=== PATIENT | female | born 1960 | race Caucasian/White ===

== ENCOUNTER 2019-06-07 09:59 | Emergency (ER) | payer MEDICARE ==
--- OUTSIDE RECORDS SUMMARY | 2019-06-07 10:19 | XMS REPORT | Continuity of Care Document ---
:1960 External Reference #:[id number] Author Name Juan Sheppard DO, MPH Address [address] [place] [address], [address] [place] [address] Care Team Providers Name Role Phone Lucina Kelley M.D. - Family Care Team Information System Configuration Specialist [phone] Medicine Po Ramos DMP - Color Drum Worker Care Team Information System Configuration Specialist [phone] Problems Description No Information Available Social History Type Date Description Comments Sex Unknown ETOH Use Denies alcohol use Tobacco Use Start: Unknown Patient is a current smoker, smokes every day Recreational Drug Use Denies Drug Use Smoking Status Reviewed: 04/19/19 Patient is a current smoker, smokes every day Allergies, Adverse Reactions, Alerts Active Allergies Reaction Severity Comments Date Droperidol 03/20/2019 Varenicline Tartrate 03/20/2019 Sulfa Antibiotics 03/20/2019 Medications Active Medications SIG Qnty Indications Ordering Date Provider Tizanidine HCL si/2-1 by 60tabs Juan Sheppard, 04/04/2019 4mg mouth every 12 day TIFFANIE CAN Tablets as directed Ibuprofen si by mouth Unknown 600mg Tablets three times a day Omeprazole 1 by mouth every Unknown 40mg day Capsules DR Levothyroxine Sodium 1 by mouth daily Unknown 75mcg Tablets Bupropion 1 by mouth daily Unknown Hydrochloride ER (XL) 300mg Tablets ER 24HR Oxycodone-Acetaminoph si by mouth Unknown en every 4-6 hours 5-325mg Tablets chronic pain patient Trazodone HCL si-2 by mouth Unknown 100mg every night at Tablets bedtime as directed Diclofenac Sodium apply four grams Unknown 1% to left elbow four Gel times a day Hydrocodone-Acetamino take 1 tablet by Unknown phen mouth every 8 to 5-325mg Tablets 12 hours as directed chronic pain. Prednisone si by mouth Unknown 10mg Tablets day 1; 7 by mouth day 2; decreasing 1 tablet each day as directed Immunizations Description No Information Available Vital Signs Date Vital Result Comment 04/19/2019 2:21pm BP Systolic 136 mmHg BP Diastolic 82 mmHg Heart Rate 88 /min Respiratory Rate 20 /min Height 64 inches 5'4" Weight 142.00 lb Pain Level 9 Pain at this time. Pain Level With Medicine 9 on average with meds Pain Level Without Medicine 9 without meds BMI (Body Mass Index) 24.4 kg/m2 04/04/2019 2:30pm BP Systolic 122 mmHg BP Diastolic 72 mmHg Heart Rate 74 /min Respiratory Rate 20 /min Height 64 inches 5'4" Weight 144.00 lb Pain Level 9 Pain at this time. Pain Level With Medicine 9 on average with meds Pain Level Without Medicine 9 without meds BMI (Body Mass Index) 24.7 kg/m2 Results Description No Information Available Procedures Date Code Description Status 03/20/2019 05204 Brief Emotional/Behav Assessment W/ Scoring Doc Per Completed Standard Inst Medical Devices Description No Information Available Encounters Type Date Location Provider Dx Diagnosis Office Visit 04/04/2019 Main Office as Of Juan Sheppard DO G89.29 Other chronic pain 2:30p 10/07/13 MPH M54.5 Low back pain M79.671 Pain in right foot M79.672 Pain in left foot M20.41 Other hammer toe(s) (acquired), right foot M20.42 Other hammer toe(s) (acquired), left foot M21.6x1 Other acquired deformities of right foot M21.6x2 Other acquired deformities of left foot Z79.891 tank terminal gauger (current) use of opiate analgesic Office Visit 03/20/2019 1:45p Main Office as Juan Sheppard G89.29 Other chronic Of 10/07/13 DO, MPH pain M54.5 Low back pain M79.671 Pain in right foot M79.672 Pain in left foot M20.41 Other hammer toe(s) (acquired), right foot M20.42 Other hammer toe(s) (acquired), left foot M21.6x1 Other acquired deformities of right foot M21.6x2 Other acquired deformities of left foot I73.9 Peripheral vascular disease, unspecified E03.9 Hypothyroidism, unspecified Z13.31 Encounter for screening for depression Z79.891 tank terminal gauger (current) use of opiate analgesic F41.9 Anxiety disorder, unspecified K21.9 Gastro-esophageal reflux disease without esophagitis F43.12 Post-traumatic stress disorder, chronic F17.210 Nicotine dependence, cigarettes, uncomplicated E03.8 Other specified hypothyroidism G47.8 Other sleep disorders Z71.89 Other specified counseling Z71.3 Dietary counseling and surveillance Assessments Date Code Description Provider 04/19/2019 G89.29 Other chronic pain Sheppard, Juan, DO, MPH 04/19/2019 M54.2 Cervicalgia Sheppard, Juan, DO, MPH 04/19/2019 M54.5 Low back pain Sheppard, Juan, DO, MPH 04/19/2019 M79.671 Pain in right foot Sheppard, Juan, DO, MPH 04/19/2019 M79.672 Pain in left foot Sheppard, Juan, DO, MPH 04/19/2019 M20.41 Other hammer toe(s) (acquired), right foot Sheppard, Juan, DO, MPH 04/19/2019 M20.42 Other hammer toe(s) (acquired), left foot Sheppard, Juan, DO , MPH 04/19/2019 M21.6x1 Other acquired deformities of right foot Sheppard, Juan, DO , MPH 04/19/2019 M21.6x2 Other acquired deformities of left foot Sheppard, Juan, DO , MPH 04/19/2019 Z79.891 tank terminal gauger (current) use of opiate analgesic Sheppard, Juan , DO, MPH 04/04/2019 G89.29 Other chronic pain Sheppard, Juan, DO, MPH 04/04/2019 M54.5 Low back pain Sheppard, Juan, DO, MPH 04/04/2019 M79.671 Pain in right foot Sheppard, Juan, DO, MPH 04/04/2019 M79.672 Pain in left foot Sheppard, Juan, DO, MPH 04/04/2019 M20.41 Other hammer toe(s) (acquired), right foot Sheppard, Juan, DO, MPH 04/04/2019 M20.42 Other hammer toe(s) (acquired), left foot Sheppard, Juan, DO , MPH 04/04/2019 M21.6x1 Other acquired deformities of right foot Sheppard, Juan, DO , MPH 04/04/2019 M21.6x2 Other acquired deformities of left foot Sheppard, Juan, DO , MPH 04/04/2019 Z79.891 assisted (current) use of opiate analgesic Sheppard, Juan , DO, MPH 03/20/2019 G89.29 Other chronic pain Sheppard, Juan, DO, MPH 03/20/2019 M54.5 Low back pain Sheppard, Juan, DO, MPH 03/20/2019 M79.671 Pain in right foot Sheppard, Juan, DO, MPH 03/20/2019 M79.672 Pain in left foot Sheppard, Juan, DO, MPH 03/20/2019 M20.41 Other hammer toe(s) (acquired), right foot Sheppard, Juan, DO, MPH 03/20/2019 M20.42 Other hammer toe(s) (acquired), left foot Sheppard, Juan, DO , MPH 03/20/2019 M21.6x1 Other acquired deformities of right foot Sheppard, Juan, DO , MPH 03/20/2019 M21.6x2 Other acquired deformities of left foot Sheppard, Juan, DO , MPH 03/20/2019 I73.9 Peripheral vascular disease, unspecified Sheppard, Juan, DO, MPH 03/20/2019 E03.9 Hypothyroidism, unspecified Sheppard, Juan, DO, MPH 03/20/2019 Z13.31 Encounter for screening for depression Sheppard, Juan, DO, MPH 03/20/2019 Z79.891 assisted (current) use of opiate analgesic Sheppard, Juan , DO, MPH 03/20/2019 F41.9 Anxiety disorder, unspecified Sheppard, Juan, DO, MPH 03/20/2019 K21.9 Gastro-esophageal reflux disease without Juan Sheppard DO MPH esophagitis 03/20/2019 F43.12 Post-traumatic stress disorder, chronic Juan Sheppard DO MPH 03/20/2019 F17.210 Nicotine dependence, cigarettes, Juan Sheppard DO MPH uncomplicated 03/20/2019 E03.8 Other specified hypothyroidism Juan Sheppard DO, MPH 03/20/2019 G47.8 Other sleep disorders Juan Sheppard DO, MPH 03/20/2019 Z71.89 Other specified counseling Juan Sheppard DO, MPH 03/20/2019 Z71.3 Dietary counseling and surveillance Juan Sheppard DO MPH Plan of Treatment Future Appointment(s):05/30/2019 11:00 am - Juan Sheppard DO, MPH at Main Office as Of 10/07/1407 - Juan Sheppard DO, MPHG89.29 Other chronic painNew Orders:T.E.N.S. Unit, Ordered: 04/19/19Comments:Chronic. Symptoms and complaints discussed and reviewed today. No significant changes in physical findings. Continue current medical pain management.M54.2 CervicalgiaComments: Chronic. Symptoms and complaints discussed and reviewed today. Significant changes in physical findings. Continue current medical pain management. Cervical Xray report from [facility] 04/15/2019 Findings: No fracture or dislocation. There is moderate loss of disc height at C3-4 and C4-5 and there is anterolisthesis of C5 on C8, there is diffuse facet arthrosis. There is severe left foraminal stenosis at C5-6 and C6-7 and there is severe right foraminal stenosis at C6-7.IMPRESSION: Multilevel foraminal stenosis.Will ask for assistance for referral for Dr. Billingsley for evaluation of her Neck pain.Referral:Nicole Forde MD, Surgery,LqujztiedtfqD16.5 Low back painNew Orders:T.E.N.S. Unit, Ordered: 04/19/19Comments:Chronic. Symptoms and complaints discussed and reviewed today.No changes in physical findings. Patient is stable and comfortable when current medical therapy is rendered.M79.671 Pain in right footComments:Chronic. Symptoms and complaints discussed and reviewed today. No significant changes in physical findings. Continue current medical pain management.M79.672 Pain in left footComments: Chronic. Symptoms and complaints discussed and reviewed today. No significant changes in physical findings. Continue current medical pain management.M20.41 Other hammer toe(s) (acquired), right footComments:Chronic. Symptoms and complaints discussed and reviewed today. Significant changes in physical findings. Continue current medical pain management.M20.42 Other hammer toe(s) ( acquired), left footComments:Chronic. Symptoms and complaints discussed and reviewed today. Significant changes in physical findings. Continue current medical pain management.M21.6x1 Other acquired deformities of right footComments :Chronic. Symptoms and complaints discussed and reviewed today. Significant changes in physical findings. Continue current medical pain management.M21.6x2 Other acquired deformities of left footComments:Chronic. Symptoms and complaints discussed and reviewed today. Significant changes in physical findings. Continue current medical pain management.Z79.891 assisted (current) use of opiate analgesicNew Labs:Urine Drug Screen, Ordered: 04/19/19Comments: Urine drug screen sample taken today to monitor opiate use and to monitor use of illicit substances.Will discuss results at next appointment.The following tests were ordered:6 AM, AMPH, LUIS, SAIGE, BUP, CARIS, COCM, COT, ETG, FENT, MCSHSG, OPI, OXY, PCP, TAPEN, XTSY, ZOLP. A urine drug test (UDT) was ordered for this patient and collected on site today. Creatinine has been ordered as well for specimen validity, not for kidney function. Preliminary UDT results are not final and should not be used to determine patient care or plan of treatment. Initially a qualitative immunoassay screen will be done. Any inconsistent or positive findings will be further tested with a more comprehensive quantitative confirmation LCMS study. It is part of the treatment process of prescribing controlled substances and is considered standard of care.AllComments:Continue current medical pain management; injection therapy, osteopathic manipulation, PT / modalities, and consults as needed to manage chronic pain.Non - opioid pain management discussed and optionsdiscussed.Side effects discussed; anticipatory guidance given. Patient clearly understand and agree with all medical treatments and suggestions. All medicines prescribed are adequate and appropriate for this patient's complaint of pain, medical history, physical, and personal goals.Goals of Treatment are to provide adequate and appropriate multidisciplinary medical pain management to increase/ maintain patient's quality of life and functionality while maintaining satisfactory side effect profile andminimizing mcfp end-organ damage. Importance of regular nutrition throughout the day discussed.Activity as toleratedContinue with PCP Functional Status Description No Information Available Mental Status Description No Information Available Referrals Refer to Dr Reason for Referral Status Appt Date Nicole Forde MD Please evaluate and treat neck pain. Created [address] [place] [address] [phone]
--- OUTSIDE RECORDS SUMMARY | 2019-06-07 10:19 | XMS REPORT | Continuity of Care Document ---
:1960 External Reference #:[id number] Author Name Juan Sheppard DO MPH Address [address] [place] [address], [address] [place] [address] Care Team Providers Name Role Phone Lucina Kelley M.D. - Family Care Team Information Distribution Lineman [phone] Medicine Po Ramos DMP - Associate Director Career Services Care Team Information Distribution Lineman [phone] Problems Description No Information Available Social History Type Date Description Comments Sex Unknown ETOH Use Denies alcohol use Tobacco Use Start: Unknown Patient is a current smoker, smokes every day Recreational Drug Use Denies Drug Use Smoking Status Reviewed: 04/04/19 Patient is a current smoker, smokes every day Allergies, Adverse Reactions, Alerts Active Allergies Reaction Severity Comments Date Droperidol 03/20/2019 Varenicline Tartrate 03/20/2019 Sulfa Antibiotics 03/20/2019 Medications Active Medications SIG Qnty Indications Ordering Date Provider Tizanidine HCL si/2-1 by 60tabs Juan Sheppard, 04/04/2019 4mg mouth every 12 DO, MPH Tablets day as directed Ibuprofen si by mouth Unknown 600mg Tablets three times a day Omeprazole 1 by mouth every Unknown 40mg Capsules day DR Levothyroxine Sodium 1 by mouth daily Unknown 75mcg Tablets Bupropion 1 by mouth daily Unknown Hydrochloride ER (XL) 300mg Tablets ER 24HR Oxycodone-Acetaminophe si by mouth Unknown n every 4-6 hours 5-325mg Tablets chronic pain patient Trazodone HCL si-2 by mouth Unknown 100mg every night at Tablets bedtime as directed Diclofenac Sodium apply four grams Unknown 1% Gel to left elbow four times a day Immunizations Description No Information Available Vital Signs Date Vital Result Comment 04/04/2019 2:30pm BP Systolic 122 mmHg BP Diastolic 72 mmHg Heart Rate 74 /min Respiratory Rate 20 /min Height 64 inches 5'4" Weight 144.00 lb Pain Level 9 Pain at this time. Pain Level With Medicine 9 on average with meds Pain Level Without Medicine 9 without meds BMI (Body Mass Index) 24.7 kg/m2 03/20/2019 2:14pm BP Systolic 130 mmHg BP Diastolic 78 mmHg Heart Rate 74 /min Respiratory Rate 18 /min Height 64 inches 5'4" Weight 144.00 lb Pain Level 8 Pain at this time. Pain Level Without Medicine 9 without meds BMI (Body Mass Index) 24.7 kg/m2 Results Description No Information Available Procedures Description No Information Available Medical Devices Description No Information Available Encounters Description No Information Available Assessments Date Code Description Provider 04/04/2019 G89.29 Other chronic pain Sheppard, Juan, [...] Sheppard, Juan, DO , MPH 04/04/2019 Z79.891 custodial (current) use of opiate analgesic Sheppard, Juan [...] depression Sheppard, Juan, DO, MPH 03/20/2019 Z79.891 custodial (current) use of opiate analgesic Sheppard, Juan , DO, MPH 03/20/2019 F41.9 Anxiety disorder, unspecified Sheppard, Juan, DO, MPH 03/20/2019 K21.9 Gastro-esophageal reflux disease without Sheppard, Juan, DO, MPH esophagitis 03/20/2019 F43.12 Post-traumatic stress disorder, chronic Sheppard, Juan, DO, MPH 03/20/2019 F17.210 Nicotine dependence, cigarettes, Sheppard, Juan, DO, MPH uncomplicated 03/20/2019 E03.8 Other specified hypothyroidism Sheppard, Juan, DO, MPH 03/20/2019 G47.8 Other sleep disorders Sheppard, Juan, DO, MPH 03/20/2019 Z71.89 Other specified counseling Sheppard, Juan, DO, MPH 03/20/2019 Z71.3 Dietary counseling and surveillance SheppardCassi robertph, DO, MPH Plan of Treatment Future Appointment(s):05/04/2019 3:00 pm - Juan Sheppard DO, MPH at Main Office as Of 10/07/1406 - Sheppard, Juan, DO, MPHG89.29 Other chronic painComments:Chronic. Symptoms and complaints discussed and reviewed today. No significant changes in physical findings. Continue current medical pain management.M54.5 Low back painComments:Chronic. Symptoms and complaints discussed and reviewed today.No changes in physical findings. Patient is stable and comfortable when current medical therapy is rendered.M79.671 Pain in right footComments:Chronic. Symptoms and complaints discussed and reviewed today. No significant changes in physical findings. Continue current medical pain management.M79.672 Pain in left footComments:Chronic. Symptoms and complaints discussed and reviewed today. No significant changes in physical findings. Continue current medical pain management.M20.41 Other hammer toe(s) (acquired), right footM20.42 Other hammer toe(s) (acquired), left footM21.6x1 Other acquired deformities of right footM21.6x2 Other acquired deformities of left footZ79.891 custodial (current) use of opiate analgesicNew Labs:Urine Drug Screen, Ordered: 04/04/19Comments:Urine drug screen sample taken today to monitor [...] controlled substances and is considered standard of care.AllNew Medication:Tizanidine HCL 4 mg - si/2-1 by mouth every 12 day as directedComments:Continue current medical pain management; injection therapy, osteopathic [...] while maintaining satisfactory side effect profile andminimizing buttermaker end-organ damage. Importance of regular nutrition throughout the day discussed.Activity as toleratedContinue with PCP Functional Status Description No Information Available Mental Status Description No Information Available Referrals Description No Information Available
--- OUTSIDE RECORDS SUMMARY | 2019-06-07 10:19 | XMS REPORT | Continuity of Care Document ---
:1960 External Reference #:[id number] Author Name Juan Sheppard DO MPH Address [address] [place] [address], [address] [place] [address] Care Team Providers Name Role Phone Lucina Kelley M.D. - Family Care Team Information Warehouse Person [phone] Medicine Po Ramos DMP - Footwear Sales Representative Care Team Information Warehouse Person [phone] Problems Description No Information Available Social History [...] Sheppard, Juan, DO , MPH 04/04/2019 Z79.891 alf (current) use of opiate analgesic Sheppard, Juan [...] depression Sheppard, Juan, DO, MPH 03/20/2019 Z79.891 alf (current) use of opiate analgesic Sheppard, Juan [...] - Sheppard, Juan, DO, MPHG89.29 Other chronic painM54.5 Low back painM79.671 Pain in right footM79.672 Pain in left footM20.41 Other hammer toe(s) (acquired), right footM20.42 Other hammer toe(s) (acquired), left footM21.6x1 Other acquired deformities of right footM21.6x2 Other acquired deformities of left footZ79.891 terminal supervisor (current) use of opiate analgesicAllNew Medication:Tizanidine HCL 4 mg - si/2-1 by [...] while maintaining satisfactory side effect profile andminimizing watermelon inspector end-organ damage. Importance of regular nutrition throughout the day discussed.Activity as toleratedContinue with PCP Functional Status Description No Information Available Mental Status Description No Information Available Referrals Description No Information Available
[2019-06-07 10:26] VITALS: BP 99/72
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
== END 2019-06-07 11:00 | disposition home or self-care (01) ==
LOC: UCCORT 09:59
DX: J32.9 Chronic sinusitis, unspecified (principal); B96.89 Other specified bacterial agents as the cause of diseases classified elsewhere; Z88.8 Allergy status to other drugs, medicaments and biological substances; Z88.2 Allergy status to sulfonamides; F17.210 Nicotine dependence, cigarettes, uncomplicated
CPT/HCPCS: 99212; G0463